=== PATIENT | male | born 1975 | race Hispanic/Latino ===

== ENCOUNTER 2017-02-04 09:43 | Inpatient (IN) | payer OTHER ==
[2017-02-04] MEDS ORDERED: Morphine 4 MG/ML VIAL IV ONE ×2 (10:15→14:37)
[2017-02-04] MEDS ORDERED: Dexamethasone 10 MG in Sodium Chloride 0.9% 50 ML IV ONE (10:15)
[2017-02-04] MEDS ORDERED: Clindamycin 600 MG in Sodium Chloride 0.9% 100 ML IVPB STA (10:16)
--- NOTE | 2017-02-04 10:18 | ED PDOC ---
HPI: CCC, URI, Sore Throat Time Seen by Provider: 02/04/17 09:51 Chief Complaint (Nursing): ENT Problem Chief Complaint (Provider): Sore thraot History Per: Patient Additional Complaint(s): 42 yo male, no PMH, presents to ED with complaint sof progressively worsning sore throat x 3 days now. pt reports pain was initially worse on the left side on Friday night, then went to the middle of his throat, and is now worse on the right. [ain radiates to bilateral ears. no fever or chills. Pt seen at [facility] by urgent care center and was referred to ED to [facility]. Pt tested positive for strep at urgent care center. No medications were administered. Past Medical History Reviewed: Nursing Documentation, Vital Signs Vital Signs: Last Vital Signs Temp 98.4 F 02/04/17 15:45 Pulse 84 02/04/17 15:45 Resp 18 02/04/17 15:45 BP 125/82 02/04/17 15:45 Pulse Ox 99 02/04/17 15:45 - Medical History PMH: No Chronic Diseases - Surgical History Surgical History: Appendectomy - Family History Family History: States: No Known Family Hx - Living Arrangements Living Arrangements: With Family - Social History Current smoker - smoking cessation education provided: No Ex-Smoker (has not smoked in the last 12 months): No Alcohol: Social Drugs: Denies - Home Medications Home Medications: Ambulatory Orders Medication Instructions Recorded Esomeprazole Magnesium [Nexium 20 mg PO DAILY 02/04/17 24Hr] - Allergies Allergies/Adverse Reactions: Allergies Allergy/AdvReac Type Severity Reaction Status Date / Time No Known Allergies Allergy Verified 02/04/17 10:00 Review of Systems ROS Statement: Except As Marked, All Systems Reviewed And Found Negative ENT: Positive for: Throat Pain Physical Exam - Reviewed Nursing Documentation Reviewed: Yes Vital Signs Reviewed: Yes - Physical Exam Appears: Positive for: Well, Non-toxic, No Acute Distress Head Exam: Positive for: ATRAUMATIC, NORMAL INSPECTION, NORMOCEPHALIC Skin: Positive for: Normal Color, Warm, DRY Eye Exam: Positive for: EOMI, Normal appearance, PERRL ENT: Positive for: TM Is/Are (WNL), Pharyngeal Erythema, Tonsillar Swelling, Other (No palatal asymmetry or uvula devation). Negative for: Nasal Congestion Neck: Positive for: Normal, Painless ROM Cardiovascular/Chest: Positive for: Regular Rate, Rhythm Respiratory: Positive for: CNT, Normal Breath Sounds Gastrointestinal/Abdominal: Positive for: Normal Exam, Bowel Sounds, Soft Back: Positive for: Normal Inspection Extremity: Positive for: Normal ROM Neurologic/Psych: Positive for: Alert, Oriented - Laboratory Results Result Diagrams: 02/04/17 10:45 02/04/17 10:45 - ECG O2 Sat by Pulse Oximetry: 99 Medical Decision Making Medical Decision Making: IV access established and treatment initiated with IV Clinda, Decadron and Morphine after diagnostics drawn. On re-eval< pt with nausea and 1 episode of vomiting. Reports pain continues to be severe. Pt medicated with Zofran and Toradol. CBC resulted with WBC 27.8, Strep (+) CT: Bilateral tonsillitis without evidence of abscess. Extension of this process to the epiglottis with betty epiglottitis. No retropharyngeal abscess identified. There is mild narrowing of the airway at the level of the epiglottis. Probable pooled secretions in the left piriform sinus. Cannot rule out abscess. These findings were discussed by telephone with MAI Recinos, at 1:20 p.m. on 02/04/2017. Case discussed with ED MD, Dr. Zuleta, who contacted ENT on-call Dr. Nielson. Dr. Nielson presented to evaluate Pt at bedside. see note. Armaments made for ICU admit. Disposition - Clinical Impression Clinical Impression: Epiglottitis - Patient ED Disposition Is Patient to be Admitted: Yes - Disposition Disposition Time: 16:39 Condition: STABLE - POA Present On Arrival: None
[2017-02-04 11:08] LABS: BASO # 0.1 K/uL (0.0-0.2); BASO % 0.4 % (0.0-2.0); EOS % 0.1 % (0.0-4.0); HEMOGLOBIN 17.1 g/dL (12.0-18.0); LYMPH # 0.3 K/uL (1.0-4.3); LYMPH % 1.2 % (20.0-40.0); MEAN CELL VOLUME 92.1 fl (80.0-94.0); MEAN CORPUSCULAR HEMOGLOBIN 31.8 pg (27.0-31.0); MEAN CORPUSCULAR HGB CONC 34.6 g/dL (33.0-37.0); MEAN PLATELET VOLUME 11.5 fl (7.2-11.7); MONO # 2.9 K/uL (0.0-0.8); MONO % 10.6 % (0.0-10.0); NEUT # 24.3 K/uL (1.8-7.0); NEUT % 87.7 % (50.0-75.0); PLATELET COUNT 122 K/uL (130-400); RBC 5.36 Mil/uL (4.40-5.90); RED CELL DISTRIBUTION WIDTH 12.2 % (11.5-14.5); WHITE BLOOD COUNT 27.8 K/uL (4.8-10.8)
[2017-02-04 11:16] LABS: ALB/GLOB RATIO 1.2 (1.0-2.1); ALBUMIN 4.5 g/dL (3.5-5.0); ALT/SGPT 82 U/L (21-72); AST/SGOT 44 U/L (17-59); BLOOD UREA NITROGEN 10 mg/dl (9-20); CALCIUM 9.5 mg/dL (8.4-10.2); GFR AFRICAN-AMERICAN > 60; GFR NON-AFRICAN AMERICAN > 60
[2017-02-04 11:56] LABS: BANDS 8 % (0-2); BASOPHIL 1 % (0-2); LYMPHOCYTE 1 % (20-50); MONOCYTE 6 % (0-10); NEUTROPHIL 83 % (42-75); REACTIVE LYMPHOCYTES 1 % (0-0); TOTAL CELLS COUNTED 100
[2017-02-04 11:57] LABS: PLATELET ESTIMATE SLIGHTLY DECREASED (NORMAL)
[2017-02-04 11:58] LABS: LARGE PLATELETS PRESENT
[2017-02-04] MEDS ORDERED: Sodium Chloride 0.9% 50 ML IV ONE (12:28)
[2017-02-04] MEDS ORDERED: Iohexol 300 100 ML IJ ONE (12:28)
--- NOTE | 2017-02-04 13:29 | CT ---
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 Coronal and sagittal reformats generated. Intravenous contrast dose: 95 mL Omnipaque 300 Radiation dose: DLP 409.53 mGy-cm This CT exam was performed using one or more of the following dose reduction techniques: Automated exposure control, adjustment of the mA and/or kV according to patient size, and/or use of iterative reconstruction technique. FINDINGS: NASOPHARYNX: Unremarkable. SUPRAHYOID NECK: Enlargement of both the right and left palatine tonsil with heterogeneous low attenuation likely reflecting phlegmonous change. No betty abscess identified. This process continues to the epiglottis, with enlargement and low-attenuation of the epiglottis, consistent with epiglottitis. There is some narrowing of the airway at the level of the epiglottis. Again, there is no evidence of betty abscess. There is low density seen along the left side of the pharynx at the level of the piriform sinuses, possibly pooled secretions. Cannot rule out abscess. This deforms the left lateral wall of the pharynx. INFRAHYOID NECK: Unremarkable larynx, hypopharynx, and supraglottic space. Vocal cords intact. MASS: None. GLANDS: Parotid and submandibular glands unremarkable. Normal size thyroid gland, without nodule. LYMPH NODES: Shotty level 2 lymph nodes noted bilaterally. CERVICAL SPINE: No fracture or focal lesion. VASCULAR STRUCTURES: Unremarkable. OTHER FINDINGS: None. IMPRESSION: Bilateral tonsillitis without evidence of abscess. Extension of this process to the epiglottis with betty epiglottitis. No retropharyngeal abscess identified. There is mild narrowing of the airway at the level of the epiglottis. Probable pooled secretions in the left piriform sinus. Cannot rule out abscess. These findings were discussed by telephone with MAI Recinos, at 1:20 p.m. on 02/04/2017.
[2017-02-04] MEDS ORDERED: Ampicillin/Sulbactam 3 GM in Sodium Chloride 0.9% 100 ML IVPB STA (13:41)
[2017-02-04 13:53] LABS: VENOUS BLOOD GAS BASE EXCESS 1.3 mmol/L (0.0-2.0); VENOUS BLOOD GAS PCO2 43 mmHg (40-60); VENOUS BLOOD GAS PO2 24 mm/Hg (30-55)
[2017-02-04] MEDS ORDERED: Pneumococcal 23-Valent Vaccine IM ONE (18:12)
[2017-02-04] MEDS ORDERED: Sodium Chloride 0.9% 1,000 ML IV SCH ×2 (18:15→22:09)
--- NOTE | 2017-02-04 18:16 | CP.CCUPN ---
<Tisha Chau - Last Filed: 02/04/17 18:41> CCU Subjective - Physician Review Subjective (Free Text): 02/04/17 18:12 - 42 YO M w/ no significant PMH presented to the ED w/ sore throat x 3 days. It has progressively been getting worse. [place] and had an exposure to a sick child with an ear infection. Throat tenderness started on the left side and slowly progressed to the right side. He was not able to eat anything since 12 pm yesterday on 02/03/17, and he was unable to eat anything today after 5 pm. Today he states he was starting to have difficulty in breathing - Pt tested positive for strep at a [facility] urgent care and was referred here. No medications were given at the urgent care. ER course: - IV access was placed. - IV clindamycin, Decadron and Morphine - CBC: WBC 27.8, Strep: + CT:Bilateral tonsillitis without evidence of abscess. Extension of this process to the epiglottis with betty epiglottitis. No retropharyngeal abscess identified. There is mild narrowing of the airway at the level of the epiglottis. Probable pooled secretions in the left piriform sinus. Cannot rule out abscess. - ENT evaluated patient at bedside not a candidate for intubation Critical Care Time Spent (in minutes): 30 CCU Objective - Vital Signs / Intake & Output Vital Signs (Last 4 hours): Vital Signs Temp Pulse Resp BP Pulse Ox 02/04/17 17:41 17 02/04/17 16:39 99 02/04/17 15:45 98.4 F 84 18 125/82 99 - Physical Exam Head: Positive for: Atraumatic, Normocephalic Pupils: Positive for: PERRL Extroacular Muscles: Positive for: EOMI Conjunctiva: Positive for: Normal Pharnyx: Positive for: Other (Pharngeal erythema, Tonsillar swelling) Nose (Internal): Positive for: Normal Inspection Neck: Positive for: Normal Range of Motion Cardiovascular: Positive for: Regular Rate and Rhythm, Normal S1, S2. Negative for: Murmurs Abdomen: Positive for: Normal Bowel Sounds. Negative for: Tenderness, Distention Lower Extremity: Positive for: Normal Inspection. Negative for: Edema Neurological: Positive for: CN II-XII Intact, Motor Func Grossly Intact, Gait Normal Skin: Positive for: Warm, Dry Psychiatric: Positive for: Alert, Oriented x 3, Normal Concentration - Medications Active Medications: Active Medications Generic Name Dose Route Start Last Admin Trade Name Freq PRN Reason Stop Dose Admin Dexamethasone 10 mg/ Dextrose 51 mls @ 100 mls/hr 02/05/17 01:00 IV Q8 ROBIN Sodium Chloride 1,000 mls @ 100 mls/hr 02/04/17 18:15 Sodium Chloride 0.9% IV 02/05/17 18:10 .Q10H ROBIN Morphine Sulfate 1 mg 02/04/17 18:09 Morphine IVP Q4 PRN Pain, moderate (4-7) Assessment/Plan - Assessment and Plan (Free Text) Assessment: 1) Epiglottis - Strict NPO - Droplet precaution - Keep head of bed elevated - Heliox administration - IVF - Afebrile - CT: Bilateral tonsillitis without evidence of abscess. Extension of this process to the epiglottis with betty epiglottitis. No retropharyngeal abscess identified. There is mild narrowing of the airway at the level of the epiglottis. Probable pooled secretions in the left piriform sinus. Cannot rule out abscess. - ENT consult appreciated -Pt doing much better after the decadron in ER. Does not appear in respiratory distress 2) Strep throat : - Afebrile - Group A Beta Strep Ag +ve - WBC: 27.8 w/ a left shift - Band: 8 - Unasyn Q6 - F/U w/ throat culture, blood culture, MRSA screen 3) DVT prophylaxis - SCD <PradeepfOmega M - Last Filed: 02/04/17 19:08> CCU Objective - Vital Signs / Intake & Output Vital Signs (Last 4 hours): Vital Signs Temp Pulse Resp BP Pulse Ox 02/04/17 17:41 17 02/04/17 16:39 99 02/04/17 15:45 98.4 F 84 18 125/82 99 - Medications Active Medications: Active Medications Generic Name Dose Route Start Last Admin Trade Name Freq PRN Reason Stop Dose Admin Sodium Chloride 1,000 mls @ 100 mls/hr 02/04/17 18:15 Sodium Chloride 0.9% IV 02/05/17 18:10 .Q10H ROBIN Ampicillin Sodium/Sulbactam 100 mls @ 100 mls/hr 02/04/17 22:00 Sodium 3 gm/ Sodium Chloride IVPB Q6 ROBIN Dexamethasone 10 mg/ Sodium 51 mls @ 102 mls/hr 02/04/17 19:00 Chloride IVPB Q8 ROBIN Morphine Sulfate 1 mg 02/04/17 18:09 Morphine IVP Q4 PRN Pain, moderate (4-7) Pneumococcal Polyvalent Vaccine 0.5 ml 02/04/17 18:12 Pneumovax 23 Vaccine IM 02/04/17 18:13 .ONCE ONE Critical Care Progress Note - Nutrition Nutrition: Nutrition Category Date Time Status NPO Diet [DIET] Diets 02/04/17 Dinner Active Attending/Attestation - Attestation I have personally seen and examined this patient.: Yes I have fully participated in the care of the patient.: Yes I have reviewed all pertinent clinical information: Yes Notes (Text): 02/04/17 19:07 The patient was Seen/interviewed and examined by me at the bedside during ICU round, Medical records reviewed and Management issues were discussed and formulated with the house staff. I have reviewed all the relevant clinical, laboratory, hemodynamic, radiographic data and medications I concur with resident's assessment and plan of care, as outlined in Dr Chau note
--- NOTE | 2017-02-04 18:41 | CP.PCM.PN ---
Subjective - Date & Time of Evaluation Date of Evaluation: 02/04/17 Time of Evaluation: 15:00 - Subjective Subjective: See below Objective - Vital Signs/Intake and Output Vital Signs (last 24 hours): Temp Pulse Resp BP Pulse Ox 98.4 F 84 17 125/82 99 02/04/17 15:45 02/04/17 15:45 02/04/17 17:41 02/04/17 15:45 02/04/17 16:39 - Medications Medications: Current Medications Sodium Chloride (Sodium Chloride 0.9%) 1,000 mls @ 100 mls/hr IV .Q10H ROBIN Stop: 02/05/17 18:10 Ampicillin Sodium/Sulbactam (Sodium 3 gm/ Sodium Chloride) 100 mls @ 100 mls/ hr IVPB Q6 ROBIN Dexamethasone 10 mg/ Sodium (Chloride) 51 mls @ 102 mls/hr IVPB Q8 ROBIN Morphine Sulfate (Morphine) 1 mg IVP Q4 PRN PRN Reason: Pain, moderate (4-7) Pneumococcal Polyvalent Vaccine (Pneumovax 23 Vaccine) 0.5 ml IM .ONCE ONE Stop: 02/04/17 18:13 Assessment and Plan - Assessment and Plan (Free Text) Assessment: History of Present Illness 42 y/o male with 3 days of sore throat significantly worse since yesterday. He has been unable to eat or drink since yesterday due to the pain. He also has voice changes. Since coming in to the ER and receiving Decadron a few hours ago , he feels significantly better. He currently denies any trouble breathing. His throat feels much more open now. Past Medical Hx denies NKDA Social and Family Hx non-contributory Home Medications Nexium Exam awake, alert, comfortable. Breathing comfortably No stridor or noisy breathing. Patient is quite comfortable and is talking on the phone. Voice is a little hoarse. Neck soft, no swelling; tender central neck without mass or induration; trachea midline oc/op clear; no palatal swelling. nose clear face symmetric and non-tender Procedure Note: fiberoptic laryngoscopy 11074. Indication: voice changes, laryngeal edema Nose anesthetized with Lidocaine 4% spray. Flexible fiberoptic scope then passed into the nose and passed down to the hypopharynx/larynx. There is moderate swelling and redness of the entire epiglottis with left>right aryepigloittic and arytenoid edema. This edema is non-obstructing, and I am easily able to see both true vocal cords when he speaks. The airway is patent. Scope removed. No complications. Patient tolerated procedure well. CT reviewed; no abscess; thickening of the epiglottis c/w acute epiglottitis Impression Acute Epiglottitis Recommend ICU admission for airway monitoring Decadron 10 q8h IV Unasyn 3g IV Q6h HOB elevation NPO My findings were d/w patient in detail. I explained that he has swelling of the epiglottis due to infection. He seems to be more comfortable with the Decadron he has received. I do not see an indication for tracheotomy at this point as he has a patent airway and is feeling better (and he is quite comfortable). I did, however, explain to him that should his swelling worsen, then he may need airway management with a tracheotomy. He understands. My findings and plan were d/w ER and ICU attendings, as well as the ICU nurse who will receive this patient. I will follow closely; should he develop any changes to his status or develop any new or worsening airway/throat complaints, please notify me immediately and I will re-assess his airway.
[2017-02-04] MEDS ORDERED: Dexamethasone 10 MG in Sodium Chloride 0.9% 50 ML IVPB SCH (19:00)
[2017-02-04] MEDS: Morphine 4 MG/ML VIAL IVP PRN (20:00)
--- NOTE | 2017-02-04 20:53 | CP.PCM.HP ---
History of Present Illness - History of Present Illness History of Present Illness: 42 yo admitted to the ICU with acute epiglotitis Present on Admission - Present on Admission Any Indicators Present on Admission: No Past Patient History - Past Medical History & Family History Past Medical History?: Yes - Past Social History Smoking Status: Current Some Days Smoker - MUSCULOSKELETAL/RHEUMATOLOGICAL Hx Falls: No - PSYCHIATRIC Hx Substance Use: No (recreational cocaine 10 yrs ago) - SURGICAL HISTORY Hx Appendectomy: Yes - ANESTHESIA Hx Anesthesia: Yes Hx Anesthesia Reactions: No Meds Allergies/Adverse Reactions: Allergies Allergy/AdvReac Type Severity Reaction Status Date / Time No Known Allergies Allergy Verified 02/04/17 10:00 Physical Exam - Respiratory Exam Respiratory Exam: NORMAL BREATHING PATTERN - Cardiovascular Exam Cardiovascular Exam: REGULAR RHYTHM - GI/Abdominal Exam GI & Abdominal Exam: Normal Bowel Sounds Results - Vital Signs Recent Vital Signs: Last Vital Signs Temp 99.5 F 02/04/17 20:00 Pulse 93 H 02/04/17 20:00 Resp 24 02/04/17 20:00 BP 119/64 02/04/17 20:00 Pulse Ox 96 02/04/17 20:00 - Labs Result Diagrams: 02/04/17 10:45 02/04/17 10:45 Assessment & Plan - Assessment and Plan (Free Text) Assessment: Acute Epiglottitis Admit to ICU IVF O2 ABX Steroids ENT - Date & Time Date: 02/04/17 Time: 22:22
[2017-02-04] MEDS: Ampicillin/Sulbactam 3 GM in Sodium Chloride 0.9% 100 ML IVPB SCH (21:09)
[2017-02-05] MEDS ORDERED: Dexamethasone 10 MG in Sodium Chloride 0.9% 50 ML IV SCH (01:00)
[2017-02-05] MEDS ORDERED: Dexamethasone 10 MG in Dextrose 5% In Water 50 ML IV SCH (01:00)
[2017-02-05] MEDS: Sodium Chloride 0.9% 1,000 ML IV SCH ×4 (01:41→17:00)
[2017-02-05] MEDS: Dexamethasone 10 MG in Sodium Chloride 0.9% 50 ML IVPB SCH ×3 (03:00→19:43)
[2017-02-05] MEDS: Ampicillin/Sulbactam 3 GM in Sodium Chloride 0.9% 100 ML IVPB SCH ×4 (03:30→21:28)
[2017-02-05 05:33] LABS: BASO % 0.1 % (0.0-2.0); HEMOGLOBIN 15.6 g/dL (12.0-18.0); LYMPH # 0.6 K/uL (1.0-4.3); LYMPH % 1.9 % (20.0-40.0); MEAN CORPUSCULAR HEMOGLOBIN 32.4 pg (27.0-31.0); MEAN CORPUSCULAR HGB CONC 34.8 g/dL (33.0-37.0); MEAN PLATELET VOLUME 12.2 fl (7.2-11.7); MONO # 1.3 K/uL (0.0-0.8); MONO % 4.5 % (0.0-10.0); NEUT # 27.8 K/uL (1.8-7.0); NEUT % 93.5 % (50.0-75.0); NRBC % 0.2 % (0.0-0.0); PLATELET COUNT 115 K/uL (130-400); RBC 4.82 Mil/uL (4.40-5.90); RED CELL DISTRIBUTION WIDTH 12.2 % (11.5-14.5); WHITE BLOOD COUNT 29.7 K/uL (4.8-10.8)
[2017-02-05 05:37] LABS: ALB/GLOB RATIO 1.2 (1.0-2.1); ALBUMIN 3.8 g/dL (3.5-5.0); ALT/SGPT 60 U/L (21-72); AST/SGOT 34 U/L (17-59); BLOOD UREA NITROGEN 17 mg/dl (9-20); CALCIUM 9.2 mg/dL (8.4-10.2); GFR AFRICAN-AMERICAN > 60; GFR NON-AFRICAN AMERICAN > 60
[2017-02-05] MEDS: Morphine 4 MG/ML VIAL IVP PRN (05:46)
[2017-02-05 07:08] LABS: LYMPHOCYTE 2 % (20-50); MONOCYTE 6 % (0-10); NEUTROPHIL 92 % (42-75); TOTAL CELLS COUNTED 100
[2017-02-05 07:11] LABS: PLATELET ESTIMATE SLIGHTLY DECREASED (NORMAL)
[2017-02-05 07:13] LABS: ANISOCYTOSIS SLIGHT; LARGE PLATELETS PRESENT
--- NOTE | 2017-02-05 09:21 | CP.PCM.PN ---
Subjective - Date & Time of Evaluation Date of Evaluation: 02/05/17 Time of Evaluation: 09:14 - Subjective Subjective: see below Objective - Vital Signs/Intake and Output Vital Signs (last 24 hours): Temp Pulse Resp BP Pulse Ox 98.4 F 93 H 20 131/87 96 02/05/17 08:00 02/05/17 08:00 02/05/17 08:00 02/05/17 08:00 02/05/17 08:00 Intake and Output: 02/05/17 02/05/17 06:59 18:59 Intake Total 1650 100 Output Total 575 Balance 1075 100 - Medications Medications: Current Medications Ampicillin Sodium/Sulbactam (Sodium 3 gm/ Sodium Chloride) 100 mls @ 100 mls/ hr IVPB Q6 ROBIN Last Admin: 02/05/17 09:03 Dose: 100 mls/hr Dexamethasone 10 mg/ Sodium (Chloride) 51 mls @ 102 mls/hr IVPB Q8@0400,1200, 2000 [facility] Last Admin: 02/05/17 03:00 Dose: 102 mls/hr Sodium Chloride (Sodium Chloride 0.9%) 1,000 mls @ 150 mls/hr IV .Q6H40M [facility] Stop: 02/05/17 23:38 Last Admin: 02/05/17 07:30 Dose: 150 mls/hr Morphine Sulfate (Morphine) 1 mg IVP Q4 PRN PRN Reason: Pain, moderate (4-7) Last Admin: 02/05/17 05:46 Dose: 1 mg - Labs Labs: 02/05/17 04:35 02/05/17 04:35 Assessment and Plan - Assessment and Plan (Free Text) Assessment: feels better. i spoke with patient over telephone twice last night to check on his progress, and he felt fine. no throat tightness or trouble breathing. pain is minimal, only present when he swallows. he is able to swallow his saliva, whereas yesterday he had trouble. no fevers Exam awake, alert, comfortable no stridor; voice strong and a little hoarse neck soft, no swelling, minimal tenderness (much improved c/w yesterday) oc/op clear Fiberoptic Laryngosopy: improvement to epiglottis and AE fold/arytenoid edema. I am able to see into the left pyriform sinus today when he phonates - it is clear. The epiglottis is still red and moderately swollen, but better. I am easily able to see all of b/l TVC at rest. Airway patent. Impression Acute epiglottitis - improving Recommend Continue ICU monitoring Continue Decadron 10 IV Q8h Continue IV Unasyn NPO will continue to follow closely
--- NOTE | 2017-02-05 12:25 | CP.PCM.CON ---
History of Present Illness - History of Present Illness History of Present Illness: 42 YO M presented to the ED w/ sore throat x 3 days. It has progressively been getting worse. [place] and had an exposure to a sick child with an ear infection. Throat tenderness started on the left side and slowly progressed to the right side. He was not able to eat anything and later developed dyspnea - Pt tested positive for strep at a [facility] and was referred here. CT:Bilateral tonsillitis without evidence of abscess. Extension of this process to the epiglottis with betty epiglottitis. No retropharyngeal abscess identified. There is mild narrowing of the airway at the level of the epiglottis. Probable pooled secretions in the left piriform sinus. Cannot rule out abscess. switched to IV Unasyn ID consult requested FH- CAD HTN Review of Systems - Review of Systems All systems: reviewed and no additional remarkable complaints except - Constitutional Constitutional: As Per HPI. absent: Chills, Fever - EENT Eyes: absent: As Per HPI, Blind Spots, Blurred Vision, Change in Vision, Decreased Night Vision, Diplopia, Discharge, Dry Eye, Exophthalmos, Floaters, Irritation, Itchy Eyes, Loss of Peripheral Vision, Pain, Photophobia, Requires Corrective Lenses, Sees Flashes, Spots in Vision, Tunnel Vision, Other Visual Disturbances, Loss of Vision, Other Ears: absent: As Per HPI, Decreased Hearing, Ear Discharge, Ear Pain, Tinnitus, Abnormal Hearing, Disequilibrium, Dizziness, Other Nose/Mouth/Throat: As Per HPI - Cardiovascular Cardiovascular: absent: As Per HPI, Acrocyanosis, Chest Pain, Chest Pain at Rest , Chest Pain with Activity, Claudication, Diaphoresis, Dyspnea, Dyspnea on Exertion, Edema, Irregular Heart Rhythm, Pain Radiating to Arm/Neck/Jaw, Leg Edema, Leg Ulcers, Lightheadedness, Orthopnea, Palpitations, Paroxysmal Nocturnal Dyspnea, Pedal Edema, Radiating Pain, Rapid Heart Rate, Slow Heart Rate, Syncope, Other - Respiratory Respiratory: As Per HPI - Gastrointestinal Gastrointestinal: absent: As Per HPI, Abdominal Pain, Belching, Bloating, Change in Bowel Habits, Change in Stool Character, Coffee Ground Emesis, Constipation, Cramping, Diarrhea, Dyspepsia, Dysphagia, Early Satiety, Excessive Flatus, Fecal Incontinence, Heartburn, Hematemesis, Hematochezia, Loose Stools, Melena, Nausea, Odynophagia, Temesmus, Vomiting, Other - Genitourinary Genitourinary: absent: As Per HPI, Change in Urinary Stream, Difficulty Urinating, Dysuria, Flank Pain, Hematuria, Pyuria, Nocturia, Urinary Incontinence, Urinary Frequency, Urinary Hesitance, Urinary Urgency, Voiding Freq/Small Amts, Freq UTI, Hx Renal/Bladder Calculi, Hx /Renal Surgery, Bladder Distension, Other - Musculoskeletal Musculoskeletal: absent: As Per HPI, Abnormal Gait, Arthralgias, Atrophy, Back Pain, Deformity, Joint Swelling, Limited Range of Motion, Loss of Height, Muscle Cramps, Muscle Weakness, Myalgias, Neck Pain, Numbness, Radiating Pain into Limb, Stiffness, Tingling, Other - Integumentary Integumentary: absent: As Per HPI, Acne, Alopecia, Bleeding Lesions, Change in Hair, Change in Nails, Change in Pigmentation, Changing Lesions, Dry Skin, Erythema, Furuncle, Hirsutism, Lesions, New Lesions, Non-Healing Lesions, Photosensitivity, Pruritus, Rash, Skin Pain, Skin Ulcer, Sores, Striae, Swelling , Unusual Bruising, Wounds, Jaundice, Other - Neurological Neurological: absent: As Per HPI, Abnormal Gait, Abnormal Hearing, Abnormal Movements, Abnormal Speech, Behavioral Changes, Burning Sensations, Confusion, Convulsions, Disequilibrium, Dizziness, Numbness, Focal Weakness, Frequent Falls , Headaches, Lack of Coordination, Loss of Vision, Memory Loss, Paresthesias, Radicular Pain, Restless Legs, Sensory Deficit, Syncope, Tingling, Tremor, Vertigo, Weakness, Other Visual Disturbances, Other - Psychiatric Psychiatric: absent: As Per HPI, Abnormal Sleep Pattern, Anhedonia, Anxiety, Auditory Hallucinations, Behavioral Changes, Change in Appetite, Change in Libido, Confusion, Depression, Difficulty Concentrating, Hallucinations, Homicidal Ideation, Hopelessness, Irritability, Memory Loss, Mood Swings, Panic Attacks, Paranoia, Suicidal Ideation, Visual Hallucinations, Tactile Hallucinations, Other - Endocrine Endocrine: absent: As Per HPI, Change in Body Appearance, Change in Libido, Cold Intolorance, Deepening of Voice, Excessive Sweating, Fatigue, Flushing, Heat Intolorance, Increase in Ring/Shoe/Hat Size, Palpitations, Polydipsia, Polyphagia, Polyuria, Other - Hematologic/Lymphatic Hematologic: absent: As Per HPI, Easy Bleeding, Easy Bruising, Lymphadenopathy, Other Past Patient History - Past Medical History & Family History Past Medical History?: Yes - Past Social History Smoking Status: Current Some Days Smoker - MUSCULOSKELETAL/RHEUMATOLOGICAL Hx Falls: No - PSYCHIATRIC Hx Substance Use: No (recreational cocaine 10 yrs ago) - SURGICAL HISTORY Hx Appendectomy: Yes - ANESTHESIA Hx Anesthesia: Yes Hx Anesthesia Reactions: No Meds Allergies/Adverse Reactions: Allergies Allergy/AdvReac Type Severity Reaction Status Date / Time No Known Allergies Allergy Verified 02/04/17 10:00 - Medications Medications: Current Medications Ampicillin Sodium/Sulbactam (Sodium 3 gm/ Sodium Chloride) 100 mls @ 100 mls/ hr IVPB Q6 [facility] Last Admin: 02/05/17 09:03 Dose: 100 mls/hr Dexamethasone 10 mg/ Sodium (Chloride) 51 mls @ 102 mls/hr IVPB Q8@0400,1200, 2000 [facility] Last Admin: 02/05/17 12:13 Dose: 102 mls/hr Sodium Chloride (Sodium Chloride 0.9%) 1,000 mls @ 150 mls/hr IV .Q6H40M [facility] Stop: 02/05/17 23:38 Last Admin: 02/05/17 07:30 Dose: 150 mls/hr Morphine Sulfate (Morphine) 1 mg IVP Q4 PRN PRN Reason: Pain, moderate (4-7) Last Admin: 02/05/17 05:46 Dose: 1 mg Physical Exam - Constitutional Appears: Non-toxic, Chronically Ill - Head Exam Head Exam: ATRAUMATIC, NORMAL INSPECTION, NORMOCEPHALIC - Eye Exam Eye Exam: EOMI, PERRL. absent: Scleral icterus - ENT Exam ENT Exam: Mucous Membranes Dry, Normal External Ear Exam, TM's Normal Bilaterally. absent: Normal Oropharynx Additional comments: + pharyngotonsillitis epiglottitis - Neck Exam Neck exam: Negative for: Lymphadenopathy, Thyromegaly - Respiratory Exam Respiratory Exam: Decreased Breath Sounds, Clear to Auscultation Bilateral - Cardiovascular Exam Cardiovascular Exam: REGULAR RHYTHM, +S1, +S2 - GI/Abdominal Exam GI & Abdominal Exam: Diminished Bowel Sounds, Soft. absent: Tenderness - Rectal Exam Rectal Exam: Deferred - Extremities Exam Extremities exam: Positive for: pedal pulses present. Negative for: calf tenderness, pedal edema, tenderness - Back Exam Back exam: absent: CVA tenderness (L), CVA tenderness (R), paraspinal tenderness - Neurological Exam Neurological exam: Alert, CN II-XII Intact, Oriented x3, Reflexes Normal - Psychiatric Exam Psychiatric exam: Normal Mood - Skin Skin Exam: Dry, Intact Results - Vital Signs Recent Vital Signs: Last Vital Signs Temp 98.4 F 02/05/17 08:00 Pulse 82 02/05/17 12:00 Resp 18 02/05/17 12:00 BP 111/65 02/05/17 12:00 Pulse Ox 97 02/05/17 12:00 - Labs Result Diagrams: 02/05/17 04:35 02/05/17 04:35 Labs: Laboratory Results - last 24 hr 02/05/17 02/05/17 04:35 04:35 WBC 29.7 H RBC 4.82 Hgb 15.6 Hct 44.8 MCV 93.0 MCH 32.4 H MCHC 34.8 RDW 12.2 Plt Count 115 L MPV 12.2 H Neut % (Auto) 93.5 H Lymph % (Auto) 1.9 L [place] % (Auto) 4.5 Eos % (Auto) 0.0 Baso % (Auto) 0.1 Neut # 27.8 H Lymph # 0.6 L Wheeler # 1.3 H Eos # 0.0 Baso # 0.0 Neutrophils % (Manual) 92 H Lymphocytes % (Manual) 2 L Monocytes % (Manual) 6 Platelet Estimate Slightly decreased L Large Platelets Present Anisocytosis (manual) Slight Sodium 143 Potassium 4.5 Chloride 109 H Carbon Dioxide 25 Anion Gap 14 BUN 17 Creatinine 0.9 Est GFR ( Amer) > 60 Est GFR (Non-Af Amer) > 60 Random Glucose 132 H Calcium 9.2 Total Bilirubin 0.7 AST 34 ALT 60 Alkaline Phosphatase 94 Total Protein 6.9 Albumin 3.8 Globulin 3.1 Albumin/Globulin Ratio 1.2 Assessment & Plan (1) Epiglottitis Status: Acute (2) Tonsillitis Status: Acute - Assessment and Plan (Free Text) Assessment: cont iv unasyn then augmentin for 10 days await cultures
--- NOTE | 2017-02-05 13:08 | CP.CCUPN ---
<Tisha Chau - Last Filed: 02/05/17 13:57> CCU Subjective - Physician Review Subjective (Free Text): 02/04/17 18:12 Patient was seen at bedside. He states he is feeling much better then yesterday and is not having any trouble breathing. He still does have discomfort during swallowing and uses suction to clear his mouth. He is otherwise doing, denies any fever or chills overnight. Critical Care Time Spent (in minutes): 30 CCU Objective - Vital Signs / Intake & Output Vital Signs (Last 4 hours): Vital Signs Pulse Resp BP Pulse Ox 02/05/17 12:00 82 18 111/65 97 02/05/17 10:00 59 L 16 153/74 H 98 Intake and Output (Last 8hrs): Intake & Output 02/04/17 02/05/17 02/05/17 22:59 06:59 14:59 Intake Total 350 1300 150 Output Total 300 275 200 Balance 50 1025 -50 Intake: IV 150 1150 Intake, Piggyback 200 150 150 Output: Urine 300 275 200 Urine, Voided 300 275 200 - Physical Exam Head: Positive for: Atraumatic, Normocephalic Pupils: Positive for: PERRL Extroacular Muscles: Positive for: EOMI Conjunctiva: Positive for: Normal Pharnyx: Positive for: Other (Pharngeal erythema, Tonsillar swelling) Nose (Internal): Positive for: Normal Inspection Neck: Positive for: Normal Range of Motion Cardiovascular: Positive for: Regular Rate and Rhythm, Normal S1, S2. Negative for: Murmurs Abdomen: Positive for: Normal Bowel Sounds. Negative for: Tenderness, Distention Lower Extremity: Positive for: Normal Inspection. Negative for: Edema Neurological: Positive for: CN II-XII Intact, Motor Func Grossly Intact, Gait Normal Skin: Positive for: Warm, Dry Psychiatric: Positive for: Alert, Oriented x 3, Normal Concentration - Medications Active Medications: Active Medications Generic Name Dose Route Start Last Admin Trade Name Freq PRN Reason Stop Dose Admin Ampicillin Sodium/Sulbactam 100 mls @ 100 mls/hr 02/04/17 22:00 02/05/17 09: 03 Sodium 3 gm/ Sodium Chloride IVPB 100 mls/hr Q6 [facility] Administration Dexamethasone 10 mg/ Sodium 51 mls @ 102 mls/hr 02/05/17 04:00 02/05/17 12:13 Chloride IVPB 102 mls/hr Q8@0400,1200,2000 [facility] Administration Sodium Chloride 1,000 mls @ 150 mls/hr 02/05/17 07:00 02/05/17 07:30 Sodium Chloride 0.9% IV 02/05/17 23:38 150 mls/hr .Q6H40M [facility] Administration Morphine Sulfate 1 mg 02/04/17 20:00 02/05/17 05:46 Morphine IVP 1 mg Q4 PRN Administration Pain, moderate (4-7) - Patient Studies Lab Studies: Lab Studies 02/05/17 02/05/17 Range/Units 04:35 04:35 WBC 29.7 H (4.8-10.8) K/uL RBC 4.82 (4.40-5.90) Mil/uL Hgb 15.6 (12.0-18.0) g/dL Hct 44.8 (35.0-51.0) % MCV 93.0 (80.0-94.0) fl MCH 32.4 H (27.0-31.0) pg MCHC 34.8 (33.0-37.0) g/dL RDW 12.2 (11.5-14.5) % Plt Count 115 L (130-400) K/uL MPV 12.2 H (7.2-11.7) fl Neut % (Auto) 93.5 H (50.0-75.0) % Lymph % (Auto) 1.9 L (20.0-40.0) % [place] % (Auto) 4.5 (0.0-10.0) % Eos % (Auto) 0.0 (0.0-4.0) % Baso % (Auto) 0.1 (0.0-2.0) % Neut # 27.8 H (1.8-7.0) K/uL Lymph # 0.6 L (1.0-4.3) K/uL [place] # 1.3 H (0.0-0.8) K/uL Eos # 0.0 (0.0-0.7) K/uL Baso # 0.0 (0.0-0.2) K/uL Neutrophils % (Manual) 92 H (42-75) % Lymphocytes % (Manual) 2 L (20-50) % Monocytes % (Manual) 6 (0-10) % Platelet Estimate Slightly decreased L (NORMAL) Large Platelets Present Anisocytosis (manual) Slight Sodium 143 (132-148) mmol/l Potassium 4.5 (3.6-5.0) MMOL/L Chloride 109 H (98-107) mmol/L Carbon Dioxide 25 (22-30) mmol/L Anion Gap 14 (10-20) BUN 17 (9-20) mg/dl Creatinine 0.9 (0.8-1.5) mg/dL Est GFR ( Amer) > 60 Est GFR (Non-Af Amer) > 60 Random Glucose 132 H (75-110) mg/dL Calcium 9.2 (8.4-10.2) mg/dL Total Bilirubin 0.7 (0.2-1.3) mg/dl AST 34 (17-59) U/L ALT 60 (21-72) U/L Alkaline Phosphatase 94 (38-126) U/L Total Protein 6.9 (6.3-8.2) G/DL Albumin 3.8 (3.5-5.0) g/dL Globulin 3.1 (2.2-3.9) gm/dL Albumin/Globulin Ratio 1.2 (1.0-2.1) Laboratory Results - last 24 hr 02/05/17 02/05/17 04:35 04:35 WBC 29.7 H RBC 4.82 Hgb 15.6 Hct 44.8 MCV 93.0 MCH 32.4 H MCHC 34.8 RDW 12.2 Plt Count 115 L MPV 12.2 H Neut % (Auto) 93.5 H Lymph % (Auto) 1.9 L [place] % (Auto) 4.5 Eos % (Auto) 0.0 Baso % (Auto) 0.1 Neut # 27.8 H Lymph # 0.6 L [place] # 1.3 H Eos # 0.0 Baso # 0.0 Neutrophils % (Manual) 92 H Lymphocytes % (Manual) 2 L Monocytes % (Manual) 6 Platelet Estimate Slightly decreased L Large Platelets Present Anisocytosis (manual) Slight Sodium 143 Potassium 4.5 Chloride 109 H Carbon Dioxide 25 Anion Gap 14 BUN 17 Creatinine 0.9 Est GFR ( Amer) > 60 Est GFR (Non-Af Amer) > 60 Random Glucose 132 H Calcium 9.2 Total Bilirubin 0.7 AST 34 ALT 60 Alkaline Phosphatase 94 Total Protein 6.9 Albumin 3.8 Globulin 3.1 Albumin/Globulin Ratio 1.2 Review of Systems - Review of Systems All systems: reviewed and no additional remarkable complaints except Critical Care Progress Note - Nutrition Nutrition: Nutrition Category Date Time Status NPO Diet [DIET] Diets 02/04/17 Dinner Active Assessment/Plan - Assessment and Plan (Free Text) Assessment: 1) Epiglottis - Strict NPO - Droplet precaution - Keep head of bed elevated - Heliox administration - IVF - Afebrile - As Per ENT's note, the larngoscopy showed some improvement to the eppiglotis and AE fold/ arytenoid edema. Epiglotis is still red and moderatly swollen but better. - CT: Bilateral tonsillitis without evidence of abscess. Extension of this process to the epiglottis with betty epiglottitis. No retropharyngeal abscess identified. There is mild narrowing of the airway at the level of the epiglottis. Probable pooled secretions in the left piriform sinus. Cannot rule out abscess. - ENT consult appreciated -Pt doing much better after the decadron in ER. Does not appear in respiratory distress 2) Strep throat : - Afebrile - Group A Beta Strep Ag +ve - WBC: 29.7 w/ a left shift - Band: 8 - Unasyn Q6 - F/U w/ throat culture, blood culture, MRSA screen 3) DVT prophylaxis - SCD <FanVijay Cyndi - Last Filed: 02/05/17 18:01> Critical Care Progress Note - Nutrition Nutrition: Nutrition Category Date Time Status NPO Diet [DIET] Diets 02/04/17 Dinner Active Assessment/Plan - Assessment and Plan (Free Text) Plan: Attestation: Patient seen and examined at the bedside with Resident Dr. Susana Chau; and I agree with his outline of plans and management as documented and discussed on AM rounds reflecting my review of all applicable clinical data, and participation in the care of the patient throughout the day in ICU; today, February 05, 2017.
[2017-02-05] MEDS ORDERED: Sodium Chloride 0.9% 1,000 ML IV SCH (17:30)
--- NOTE | 2017-02-05 17:47 | CP.PCM.PN ---
Subjective - Date & Time of Evaluation Date of Evaluation: 02/05/17 Time of Evaluation: 17:45 - Subjective Subjective: see below Objective - Vital Signs/Intake and Output Vital Signs (last 24 hours): Temp Pulse Resp BP Pulse Ox 98.1 F 75 15 141/79 97 02/05/17 16:43 02/05/17 16:43 02/05/17 16:43 02/05/17 16:43 02/05/17 16:43 Intake and Output: 02/05/17 02/05/17 06:59 18:59 Intake Total 1650 2050 Output Total 575 400 Balance 1075 1650 - Medications Medications: Current Medications Ampicillin Sodium/Sulbactam (Sodium 3 gm/ Sodium Chloride) 100 mls @ 100 mls/ hr IVPB Q6 [facility] Last Admin: 02/05/17 16:59 Dose: 100 mls/hr Dexamethasone 10 mg/ Sodium (Chloride) 51 mls @ 102 mls/hr IVPB Q8@0400,1200, 2000 [facility] Last Admin: 02/05/17 12:13 Dose: 102 mls/hr Sodium Chloride (Sodium Chloride 0.9%) 1,000 mls @ 150 mls/hr IV .Q6H40M [facility] Stop: 02/05/17 23:38 Last Admin: 02/05/17 17:00 Dose: 150 mls/hr Sodium Chloride (Sodium Chloride 0.9%) 1,000 mls @ 1,000 mls/hr IV .Q1H [facility] Stop: 02/05/17 18:29 Morphine Sulfate (Morphine) 1 mg IVP Q4 PRN PRN Reason: Pain, moderate (4-7) Last Admin: 02/05/17 05:46 Dose: 1 mg - Labs Labs: 02/05/17 04:35 02/05/17 04:35 Assessment and Plan - Assessment and Plan (Free Text) Assessment: i stopped by to check on this patient he feels well. pain is improved. he wants to eat. no SOB. exam unchanged fiberoptic laryngoscopy shows some improvement when c/w this morning he will try some thickened liquids in a little bit with nursing present; any coughing and he knows to stop continue abx and steroids will continue to follow closely
[2017-02-05] MEDS ORDERED: Pantoprazole 40 MG in Sodium Chloride 0.9% 100 ML IVPB SCH (18:00)
--- NOTE | 2017-02-05 19:12 | CP.PCM.PN ---
Subjective - Date & Time of Evaluation Date of Evaluation: 02/05/17 Time of Evaluation: 22:22 - Subjective Subjective: Above noted Objective - Vital Signs/Intake and Output Vital Signs (last 24 hours): Temp Pulse Resp BP Pulse Ox 98.1 F 91 H 18 141/83 96 02/05/17 16:43 02/05/17 18:00 02/05/17 18:00 02/05/17 18:00 02/05/17 18:00 Intake and Output: 02/05/17 02/06/17 18:59 06:59 Intake Total 3049 Output Total 400 Balance 2649 - Medications Medications: Current Medications Ampicillin Sodium/Sulbactam (Sodium 3 gm/ Sodium Chloride) 100 mls @ 100 mls/ hr IVPB Q6 [facility] Last Admin: 02/05/17 16:59 Dose: 100 mls/hr Dexamethasone 10 mg/ Sodium (Chloride) 51 mls @ 102 mls/hr IVPB Q8@0400,1200, 2000 [facility] Last Admin: 02/05/17 12:13 Dose: 102 mls/hr Sodium Chloride (Sodium Chloride 0.9%) 1,000 mls @ 150 mls/hr IV .Q6H40M [facility] Stop: 02/05/17 23:38 Last Admin: 02/05/17 17:00 Dose: 150 mls/hr Morphine Sulfate (Morphine) 1 mg IVP Q4 PRN PRN Reason: Pain, moderate (4-7) Last Admin: 02/05/17 05:46 Dose: 1 mg Pantoprazole Sodium (Protonix Inj) 40 mg IVP DAILY [facility] Last Admin: 02/05/17 18:48 Dose: 40 mg - Labs Labs: 02/05/17 04:35 02/05/17 04:35 - Respiratory Exam Respiratory Exam: NORMAL BREATHING PATTERN - Cardiovascular Exam Cardiovascular Exam: REGULAR RHYTHM - GI/Abdominal Exam GI & Abdominal Exam: Normal Bowel Sounds Assessment and Plan - Assessment and Plan (Free Text) Assessment: Acute Epiglottitis improving Cont to monitor in ICU IVF O2 ABX Steroids ENT ID
[2017-02-06] MEDS: Sodium Chloride 0.9% 1,000 ML IV SCH ×3 (00:58→23:44)
[2017-02-06] MEDS: Ampicillin/Sulbactam 3 GM in Sodium Chloride 0.9% 100 ML IVPB SCH ×4 (03:22→21:12)
[2017-02-06] MEDS: Dexamethasone 10 MG in Sodium Chloride 0.9% 50 ML IVPB SCH (03:22)
[2017-02-06 05:40] LABS: BASO % 0.1 % (0.0-2.0); LYMPH # 0.8 K/uL (1.0-4.3); LYMPH % 3.7 % (20.0-40.0); MEAN CELL VOLUME 93.9 fl (80.0-94.0); MEAN CORPUSCULAR HEMOGLOBIN 31.7 pg (27.0-31.0); MEAN CORPUSCULAR HGB CONC 33.7 g/dL (33.0-37.0); MEAN PLATELET VOLUME 11.9 fl (7.2-11.7); MONO % 4.6 % (0.0-10.0); NEUT # 20.4 K/uL (1.8-7.0); NEUT % 91.6 % (50.0-75.0); PLATELET COUNT 117 K/uL (130-400); RBC 4.72 Mil/uL (4.40-5.90); RED CELL DISTRIBUTION WIDTH 12.4 % (11.5-14.5); WHITE BLOOD COUNT 22.3 K/uL (4.8-10.8)
[2017-02-06 05:51] LABS: ALB/GLOB RATIO 1.2 (1.0-2.1); ALBUMIN 3.3 g/dL (3.5-5.0); ALT/SGPT 115 U/L (21-72); AST/SGOT 85 U/L (17-59); BLOOD UREA NITROGEN 15 mg/dl (9-20); CALCIUM 8.8 mg/dL (8.4-10.2); GFR AFRICAN-AMERICAN > 60; GFR NON-AFRICAN AMERICAN > 60
[2017-02-06 07:15] LABS: BANDS 1 % (0-2); LYMPHOCYTE 3 % (20-50); MONOCYTE 5 % (0-10); NEUTROPHIL 91 % (42-75); TOTAL CELLS COUNTED 100
--- NOTE | 2017-02-06 07:17 | CP.CCUPN ---
<Tisha Chau - Last Filed: 02/06/17 11:19> CCU Subjective - Physician Review Subjective (Free Text): 02/06/17 10:30 - Patient was seen at bedside. He is doing much better his voice is improving. He states that he has minimal throat discomfort. It only hurts when he swallows. He has been able to tolerate PO with eating pudding. Denies Fever, chills, nausea, or vomiting. CCU Objective - Vital Signs / Intake & Output Vital Signs (Last 4 hours): Vital Signs Temp Pulse Resp BP Pulse Ox 02/06/17 05:56 56 L 15 122/72 95 02/06/17 04:00 98.2 F 62 15 104/80 96 Intake and Output (Last 8hrs): Intake & Output 02/05/17 02/06/17 02/06/17 22:59 06:59 14:59 Intake Total 3449 1500 Output Total 300 1100 Balance 3149 400 Intake: IV 3199 1350 Intake, Piggyback 250 150 Oral 0 Output: Urine 300 1100 Urine, Voided 300 1100 Other: # Bowel Movements 0 - Physical Exam Head: Positive for: Atraumatic, Normocephalic Pupils: Positive for: PERRL Extroacular Muscles: Positive for: EOMI Conjunctiva: Positive for: Normal Pharnyx: Positive for: Other (Pharngeal erythema, Tonsillar swelling) Nose (Internal): Positive for: Normal Inspection Neck: Positive for: Normal Range of Motion Cardiovascular: Positive for: Regular Rate and Rhythm, Normal S1, S2. Negative for: Murmurs Abdomen: Positive for: Normal Bowel Sounds. Negative for: Tenderness, Distention Lower Extremity: Positive for: Normal Inspection. Negative for: Edema Neurological: Positive for: CN II-XII Intact, Motor Func Grossly Intact, Gait Normal Skin: Positive for: Warm, Dry Psychiatric: Positive for: Alert, Oriented x 3, Normal Concentration - Medications Active Medications: Active Medications Generic Name Dose Route Start Last Admin Trade Name Freq PRN Reason Stop Dose Admin Ampicillin Sodium/Sulbactam 100 mls @ 100 mls/hr 02/04/17 22:00 02/06/17 03: 22 Sodium 3 gm/ Sodium Chloride IVPB 100 mls/hr Q6 [facility] Administration Dexamethasone 10 mg/ Sodium 51 mls @ 102 mls/hr 02/05/17 04:00 02/06/17 03:22 Chloride IVPB 102 mls/hr Q8@0400,1200,2000 [facility] Administration Morphine Sulfate 1 mg 02/04/17 20:00 02/05/17 05:46 Morphine IVP 1 mg Q4 PRN Administration Pain, moderate (4-7) Pantoprazole Sodium 40 mg 02/05/17 18:26 02/05/17 18:48 Protonix Inj IVP 40 mg DAILY [facility]IN Administration - Patient Studies Lab Studies: Lab Studies 02/06/17 02/06/17 Range/Units 04:20 04:20 WBC 22.3 H (4.8-10.8) K/uL RBC 4.72 (4.40-5.90) Mil/uL Hgb 15.0 (12.0-18.0) g/dL Hct 44.4 (35.0-51.0) % MCV 93.9 (80.0-94.0) fl MCH 31.7 H (27.0-31.0) pg MCHC 33.7 (33.0-37.0) g/dL RDW 12.4 (11.5-14.5) % Plt Count 117 L (130-400) K/uL MPV 11.9 H (7.2-11.7) fl Neut % (Auto) 91.6 H (50.0-75.0) % Lymph % (Auto) 3.7 L (20.0-40.0) % [place] % (Auto) 4.6 (0.0-10.0) % Eos % (Auto) 0.0 (0.0-4.0) % Baso % (Auto) 0.1 (0.0-2.0) % Neut # 20.4 H (1.8-7.0) K/uL Lymph # 0.8 L (1.0-4.3) K/uL [place] # 1.0 H (0.0-0.8) K/uL Eos # 0.0 (0.0-0.7) K/uL Baso # 0.0 (0.0-0.2) K/uL Sodium 140 (132-148) mmol/l Potassium 4.4 (3.6-5.0) MMOL/L Chloride 110 H (98-107) mmol/L Carbon Dioxide 23 (22-30) mmol/L Anion Gap 11 (10-20) BUN 15 (9-20) mg/dl Creatinine 0.9 (0.8-1.5) mg/dL Est GFR ( Amer) > 60 Est GFR (Non-Af Amer) > 60 Random Glucose 134 H (75-110) mg/dL Calcium 8.8 (8.4-10.2) mg/dL Total Bilirubin 0.4 (0.2-1.3) mg/dl AST 85 H D (17-59) U/L ALT 115 H D (21-72) U/L Alkaline Phosphatase 88 (38-126) U/L Total Protein 6.1 L (6.3-8.2) G/DL Albumin 3.3 L (3.5-5.0) g/dL Globulin 2.8 (2.2-3.9) gm/dL Albumin/Globulin Ratio 1.2 (1.0-2.1) Laboratory Results - last 24 hr 02/06/17 02/06/17 04:20 04:20 WBC 22.3 H RBC 4.72 Hgb 15.0 Hct 44.4 MCV 93.9 MCH 31.7 H MCHC 33.7 RDW 12.4 Plt Count 117 L MPV 11.9 H Neut % (Auto) 91.6 H Lymph % (Auto) 3.[address] [place] % (Auto) 4.6 Eos % (Auto) 0.0 Baso % (Auto) 0.1 Neut # 20.4 H Lymph # 0.[address] [place] # 1.0 H Eos # 0.0 Baso # 0.0 Sodium 140 Potassium 4.4 Chloride 110 H Carbon Dioxide 23 Anion Gap 11 BUN 15 Creatinine 0.9 Est GFR ( Amer) > 60 Est GFR (Non-Af Amer) > 60 Random Glucose 134 H Calcium 8.8 Total Bilirubin 0.4 AST 85 H D ALT 115 H D Alkaline Phosphatase 88 Total Protein 6.1 L Albumin 3.3 L Globulin 2.8 Albumin/Globulin Ratio 1.2 Review of Systems - Review of Systems All systems: reviewed and no additional remarkable complaints except Critical Care Progress Note - Nutrition Nutrition: Nutrition Category Date Time Status NPO Diet [DIET] Diets 02/04/17 Dinner Active Assessment/Plan - Assessment and Plan (Free Text) Assessment: 1) Epiglottis - Dexamethasone 6mg Q8 - Thickened liquid diet, advance as tolerated. Pt advanced to stop if he coughs - Keep head of bed elevated - Heliox administration - IVF - Afebrile - CT: Bilateral tonsillitis without evidence of abscess. Extension of this process to the epiglottis with betty epiglottitis. No retropharyngeal abscess identified. There is mild narrowing of the airway at the level of the epiglottis. Probable pooled secretions in the left piriform sinus. Cannot rule out abscess. - ENT consult appreciated -Pt doing much better only hurts on swallowing 2) Strep throat : - Afebrile - Culture Group A strep - WBC trending down - Band: trended down to 1 - Unasyn Q6 - F/U w/ throat culture, blood culture, MRSA screen 3) DVT prophylaxis - SCD <FanVijay Yun - Last Filed: 02/06/17 16:46> Critical Care Progress Note - Nutrition Nutrition: Nutrition Category Date Time Status Pureed [Dysphagia/Modified Consistency Diet] [DIET] Diets 02/06/17 Lunch Active Assessment/Plan - Assessment and Plan (Free Text) Plan: Attestation: Patient seen and examined at the bedside with Resident Dr. Susana Chau; and I agree with his outline of plans and management as documented and discussed on AM rounds reflecting my review of all applicable clinical data, and participation in the care of the patient throughout the day in ICU; today, February 06, 2017.
[2017-02-06 07:18] LABS: PLATELET ESTIMATE SLIGHTLY DECREASED (NORMAL)
[2017-02-06] MEDS: Dexamethasone 6 MG in Sodium Chloride 0.9% 50 ML IVPB SCH ×2 (12:18→19:37)
--- NOTE | 2017-02-06 13:14 | CP.PCM.PN ---
Subjective - Date & Time of Evaluation Date of Evaluation: 02/06/17 Time of Evaluation: 13:10 - Subjective Subjective: see below Objective - Vital Signs/Intake and Output Vital Signs (last 24 hours): Temp Pulse Resp BP Pulse Ox 98.6 F 64 20 141/80 97 02/06/17 12:00 02/06/17 12:00 02/06/17 12:00 02/06/17 12:00 02/06/17 12:00 Intake and Output: 02/06/17 02/06/17 06:59 18:59 Intake Total 2050 150 Output Total 1200 700 Balance 850 -550 - Medications Medications: Current Medications Ampicillin Sodium/Sulbactam (Sodium 3 gm/ Sodium Chloride) 100 mls @ 100 mls/ hr IVPB Q6 ROBIN Last Admin: 02/06/17 09:19 Dose: 100 mls/hr Dexamethasone 6 mg/ Sodium (Chloride) 51.5 mls @ 103 mls/hr IVPB Q8 ROBIN Last Admin: 02/06/17 12:18 Dose: 103 mls/hr Morphine Sulfate (Morphine) 1 mg IVP Q4 PRN PRN Reason: Pain, moderate (4-7) Last Admin: 02/05/17 05:46 Dose: 1 mg Pantoprazole Sodium (Protonix Inj) 40 mg IVP DAILY [facility] Last Admin: 02/06/17 09:18 Dose: 40 mg - Labs Labs: 02/06/17 04:20 02/06/17 04:20 Assessment and Plan - Assessment and Plan (Free Text) Assessment: feels well. no pain. tolerating thickened liquids without cough or difficulty. no fevers wbc 22k (down from 29k on steroids) exam awake, alert, comfortable neck non-tender fiberoptic laryngoscopy shows improvement to laryngeal swelling impression acute epiglottitis improving plan continue iv unasyn decrease decadron (i ordered decadron 6mg q8h) advance diet to puree will continue to follow closely i d/w patient that as long as his wbc continues to decrease and his exam continues to improve, a reasonable discharge date would be Friday.
--- NOTE | 2017-02-06 16:46 | CP.PCM.PN ---
Subjective - Date & Time of Evaluation Date of Evaluation: 02/06/17 Time of Evaluation: 22:22 - Subjective Subjective: Improving WBC dec Objective - Vital Signs/Intake and Output Vital Signs (last 24 hours): Temp Pulse Resp BP Pulse Ox 98.4 F 58 L 15 126/92 H 94 L 02/06/17 16:00 02/06/17 16:00 02/06/17 16:00 02/06/17 16:00 02/06/17 16:00 Intake and Output: 02/06/17 02/06/17 06:59 18:59 Intake Total 2050 4050 Output Total 1200 700 Balance 850 3350 - Medications Medications: Current Medications Ampicillin Sodium/Sulbactam (Sodium 3 gm/ Sodium Chloride) 100 mls @ 100 mls/ hr IVPB Q6 ROBIN Last Admin: 02/06/17 16:17 Dose: 100 mls/hr Dexamethasone 6 mg/ Sodium (Chloride) 51.5 mls @ 103 mls/hr IVPB Q8 ROBIN Last Admin: 02/06/17 12:18 Dose: 103 mls/hr Sodium Chloride (Sodium Chloride 0.9%) 1,000 mls @ 200 mls/hr IV .Q5H [facility] Stop: 02/07/17 16:31 Last Admin: 02/06/17 16:28 Dose: 200 mls/hr Morphine Sulfate (Morphine) 1 mg IVP Q4 PRN PRN Reason: Pain, moderate (4-7) Last Admin: 02/05/17 05:46 Dose: 1 mg Pantoprazole Sodium (Protonix Inj) 40 mg IVP DAILY [facility] Last Admin: 02/06/17 09:18 Dose: 40 mg - Labs Labs: 02/06/17 04:20 02/06/17 04:20 - Respiratory Exam Respiratory Exam: NORMAL BREATHING PATTERN - Cardiovascular Exam Cardiovascular Exam: REGULAR RHYTHM - GI/Abdominal Exam GI & Abdominal Exam: Normal Bowel Sounds Assessment and Plan - Assessment and Plan (Free Text) Assessment: Acute Epiglottitis improving Cont to monitor in ICU IVF O2 ABX Steroids ENT ID
[2017-02-07] MEDS: Ampicillin/Sulbactam 3 GM in Sodium Chloride 0.9% 100 ML IVPB SCH ×4 (03:03→21:01)
[2017-02-07] MEDS ORDERED: Dexamethasone 6 MG in Sodium Chloride 0.9% 50 ML IVPB SCH (04:00)
[2017-02-07 05:36] LABS: HEMOGLOBIN 14.7 g/dL (12.0-18.0); MEAN CELL VOLUME 93.9 fl (80.0-94.0); MEAN CORPUSCULAR HEMOGLOBIN 31.8 pg (27.0-31.0); MEAN CORPUSCULAR HGB CONC 33.8 g/dL (33.0-37.0); RBC 4.63 Mil/uL (4.40-5.90); RED CELL DISTRIBUTION WIDTH 12.2 % (11.5-14.5); WHITE BLOOD COUNT 17.8 K/uL (4.8-10.8)
[2017-02-07 05:44] LABS: BLOOD UREA NITROGEN 15 mg/dl (9-20); CALCIUM 8.6 mg/dL (8.4-10.2); GFR AFRICAN-AMERICAN > 60; GFR NON-AFRICAN AMERICAN > 60
[2017-02-07] MEDS: Sodium Chloride 0.9% 1,000 ML IV SCH ×2 (07:04→08:16)
--- NOTE | 2017-02-07 08:18 | CP.CCUPN ---
<Tisha Chau - Last Filed: 02/07/17 15:57> CCU Subjective - Physician Review Subjective (Free Text): 02/06/17 10:30 - Patient was seen at bedside. He seems to be doing well. Has been tolerating PO intake with thickened liquids/ soft diet. States his throat is feeling much better. Denies any fever, chills, difficulty breathing, nausea or vomiting. CCU Objective - Vital Signs / Intake & Output Vital Signs (Last 4 hours): Vital Signs Temp Pulse Resp BP Pulse Ox 02/07/17 08:00 97.6 F 50 L 15 125/72 96 02/07/17 06:00 56 L 9 L 120/69 99 Intake and Output (Last 8hrs): Intake & Output 02/06/17 02/07/17 02/07/17 22:59 06:59 14:59 Intake Total 5050 2750 400 Output Total 500 1600 400 Balance 4550 1150 0 Intake: IV 4400 1800 400 Intake, Piggyback 250 150 Oral 400 800 Output: Urine 500 1600 400 Urine, Voided 500 1600 400 Other: # Voids Urine, Voided 1 1 # Bowel Movements 1 - Physical Exam Head: Positive for: Atraumatic, Normocephalic Pupils: Positive for: PERRL Extroacular Muscles: Positive for: EOMI Conjunctiva: Positive for: Normal Pharnyx: Positive for: Other (Pharngeal erythema and swelling resolving) Nose (Internal): Positive for: Normal Inspection Neck: Positive for: Normal Range of Motion Cardiovascular: Positive for: Regular Rate and Rhythm, Normal S1, S2. Negative for: Murmurs Abdomen: Positive for: Normal Bowel Sounds. Negative for: Tenderness, Distention Lower Extremity: Positive for: Normal Inspection. Negative for: Edema Neurological: Positive for: CN II-XII Intact, Motor Func Grossly Intact, Gait Normal Skin: Positive for: Warm, Dry Psychiatric: Positive for: Alert, Oriented x 3, Normal Concentration - Medications Active Medications: Active Medications Generic Name Dose Route Start Last Admin Trade Name Freq PRN Reason Stop Dose Admin Ampicillin Sodium/Sulbactam 100 mls @ 100 mls/hr 02/04/17 22:00 02/07/17 03: 03 Sodium 3 gm/ Sodium Chloride IVPB 100 mls/hr Q6 ROBIN Administration Sodium Chloride 1,000 mls @ 200 mls/hr 02/06/17 16:30 02/07/17 08:16 Sodium Chloride 0.9% IV 02/07/17 16:31 Not Given .Q5H ROBIN Dexamethasone 4 mg/ Sodium 51 mls @ 102 mls/hr 02/07/17 12:00 Chloride IVPB Q12 ROBIN Morphine Sulfate 1 mg 02/04/17 20:00 02/05/17 05:46 Morphine IVP 1 mg Q4 PRN Administration Pain, moderate (4-7) Pantoprazole Sodium 40 mg 02/05/17 18:26 02/06/17 09:18 Protonix Inj IVP 40 mg DAILY ROBIN Administration - Patient Studies Lab Studies: Lab Studies 02/07/17 02/07/17 Range/Units 04:50 04:50 WBC 17.8 H (4.8-10.8) K/uL RBC 4.63 (4.40-5.90) Mil/uL Hgb 14.7 (12.0-18.0) g/dL Hct 43.5 (35.0-51.0) % MCV 93.9 (80.0-94.0) fl MCH 31.8 H (27.0-31.0) pg MCHC 33.8 (33.0-37.0) g/dL RDW 12.2 (11.5-14.5) % Plt Count 115 L (130-400) K/uL Sodium 139 (132-148) mmol/l Potassium 4.4 (3.6-5.0) MMOL/L Chloride 109 H (98-107) mmol/L Carbon Dioxide 25 (22-30) mmol/L Anion Gap 9 L (10-20) BUN 15 (9-20) mg/dl Creatinine 0.9 (0.8-1.5) mg/dL Est GFR ( Amer) > 60 Est GFR (Non-Af Amer) > 60 Random Glucose 130 H (75-110) mg/dL Calcium 8.6 (8.4-10.2) mg/dL Laboratory Results - last 24 hr 02/07/17 02/07/17 04:50 04:50 WBC 17.8 H RBC 4.63 Hgb 14.7 Hct 43.5 MCV 93.9 MCH 31.8 H MCHC 33.8 RDW 12.2 Plt Count 115 L Sodium 139 Potassium 4.4 Chloride 109 H Carbon Dioxide 25 Anion Gap 9 L BUN 15 Creatinine 0.9 Est GFR ( Amer) > 60 Est GFR (Non-Af Amer) > 60 Random Glucose 130 H Calcium 8.6 Review of Systems - Review of Systems All systems: reviewed and no additional remarkable complaints except Critical Care Progress Note - Nutrition Nutrition: Nutrition Category Date Time Status Pureed [Dysphagia/Modified Consistency Diet] [DIET] Diets 02/06/17 Lunch Active Assessment/Plan - Assessment and Plan (Free Text) Assessment: 1) Epiglottis - Dexamethasone 6mg Q8 - Thickened liquid diet, advance as tolerated. Pt advanced to stop if he coughs - Keep head of bed elevated - Heliox administration - IVF - Afebrile - CT: Bilateral tonsillitis without evidence of abscess. Extension of this process to the epiglottis with betty epiglottitis. No retropharyngeal abscess identified. There is mild narrowing of the airway at the level of the epiglottis. Probable pooled secretions in the left piriform sinus. Cannot rule out abscess. - ENT consult appreciated -Pt doing much better only hurts on swallowing 2) Strep throat : - Afebrile - Culture Group A strep - Blood culture no growth - WBC trending down - Unasyn Q6 3) DVT prophylaxis - SCD <Vijay Chavira - Last Filed: 02/07/17 17:04> Critical Care Progress Note - Nutrition Nutrition: Nutrition Category Date Time Status Pureed [Dysphagia/Modified Consistency Diet] [DIET] Diets 02/06/17 Lunch Active Assessment/Plan - Assessment and Plan (Free Text) Plan: Attestation: Patient seen and examined at the bedside with Resident Dr. Susana Chau; and I agree with his outline of plans and management as documented and discussed on AM rounds reflecting my review of all applicable clinical data, and participation in the care of the patient throughout the day in ICU; today, February 07, 2017.
[2017-02-07] MEDS: Dexamethasone 4 MG in Sodium Chloride 0.9% 50 ML IVPB SCH ×2 (11:59→22:08)
[2017-02-07] MEDS ORDERED: Sodium Chloride 0.9% 1,000 ML IV SCH (12:53)
--- NOTE | 2017-02-07 13:06 | CP.PCM.PN ---
Subjective - Date & Time of Evaluation Date of Evaluation: 02/07/17 Time of Evaluation: 22:22 - Subjective Subjective: Improving WBC 17K Objective - Vital Signs/Intake and Output Vital Signs (last 24 hours): Temp Pulse Resp BP Pulse Ox 98.5 F 52 L 16 126/56 L 97 02/07/17 12:00 02/07/17 12:00 02/07/17 12:00 02/07/17 12:00 02/07/17 12:00 Intake and Output: 02/07/17 02/07/17 06:59 18:59 Intake Total 3900 940 Output Total 2100 400 Balance 1800 540 - Medications Medications: Current Medications Ampicillin Sodium/Sulbactam (Sodium 3 gm/ Sodium Chloride) 100 mls @ 100 mls/ hr IVPB Q6 ROBIN Last Admin: 02/07/17 09:48 Dose: 100 mls/hr Dexamethasone 4 mg/ Sodium (Chloride) 51 mls @ 102 mls/hr IVPB Q12 ROBIN Last Admin: 02/07/17 11:59 Dose: 102 mls/hr Sodium Chloride (Sodium Chloride 0.9%) 1,000 mls @ 100 mls/hr IV .Q10H [facility]IN Stop: 02/07/17 16:31 Morphine Sulfate (Morphine) 1 mg IVP Q4 PRN PRN Reason: Pain, moderate (4-7) Last Admin: 02/05/17 05:46 Dose: 1 mg Pantoprazole Sodium (Protonix Inj) 40 mg IVP DAILY [facility] Last Admin: 02/07/17 11:59 Dose: 40 mg - Labs Labs: 02/07/17 04:50 02/07/17 04:50 - Respiratory Exam Respiratory Exam: NORMAL BREATHING PATTERN - Cardiovascular Exam Cardiovascular Exam: REGULAR RHYTHM - GI/Abdominal Exam GI & Abdominal Exam: Normal Bowel Sounds Assessment and Plan - Assessment and Plan (Free Text) Assessment: Acute Epiglottitis improving Cont to monitor in ICU IVF O2 ABX Steroids ENT ID
--- NOTE | 2017-02-07 13:41 | CP.PCM.PN ---
Subjective - Date & Time of Evaluation Date of Evaluation: 02/07/17 Time of Evaluation: 08:00 - Subjective Subjective: SLOW PROGRESS AFEBRILE C/O HOARSENESS ABLE TO TOLERATE LIQUIDS BEDRIDDEN BUT IN GOOD SPIRITS Objective - Vital Signs/Intake and Output Vital Signs (last 24 hours): Temp Pulse Resp BP Pulse Ox 98.5 F 52 L 16 126/56 L 97 02/07/17 12:00 02/07/17 12:00 02/07/17 12:00 02/07/17 12:00 02/07/17 12:00 Intake and Output: 02/07/17 02/07/17 06:59 18:59 Intake Total 3900 940 Output Total 2100 400 Balance 1800 540 - Medications Medications: Current Medications Ampicillin Sodium/Sulbactam (Sodium 3 gm/ Sodium Chloride) 100 mls @ 100 mls/ hr IVPB Q6 ROBIN Last Admin: 02/07/17 09:48 Dose: 100 mls/hr Dexamethasone 4 mg/ Sodium (Chloride) 51 mls @ 102 mls/hr IVPB Q12 ROBIN Last Admin: 02/07/17 11:59 Dose: 102 mls/hr Sodium Chloride (Sodium Chloride 0.9%) 1,000 mls @ 100 mls/hr IV .Q10H [facility]IN Stop: 02/07/17 16:31 Morphine Sulfate (Morphine) 1 mg IVP Q4 PRN PRN Reason: Pain, moderate (4-7) Last Admin: 02/05/17 05:46 Dose: 1 mg Pantoprazole Sodium (Protonix Inj) 40 mg IVP DAILY [facility]IN Last Admin: 02/07/17 11:59 Dose: 40 mg - Labs Labs: 02/07/17 04:50 02/07/17 04:50 - Constitutional Appears: Non-toxic - Head Exam Head Exam: NORMOCEPHALIC - Eye Exam Eye Exam: absent: Scleral icterus - ENT Exam ENT Exam: Mucous Membranes Dry. absent: Normal Oropharynx - Neck Exam Neck Exam: absent: Lymphadenopathy, Thyromegaly - Respiratory Exam Respiratory Exam: Decreased Breath Sounds - Cardiovascular Exam Cardiovascular Exam: REGULAR RHYTHM, +S1, +S2 - GI/Abdominal Exam GI & Abdominal Exam: Distended, Soft. absent: Tenderness - Rectal Exam Rectal Exam: Deferred - Extremities Exam Extremities Exam: absent: Calf Tenderness, Pedal Edema - Back Exam Back Exam: absent: CVA tenderness (L), CVA tenderness (R), paraspinal tenderness - Neurological Exam Neurological Exam: Alert, Awake, Oriented x3 - Psychiatric Exam Psychiatric exam: Normal Mood - Skin Skin Exam: Dry Assessment and Plan (1) Epiglottitis Status: Acute (2) Tonsillitis Status: Acute - Assessment and Plan (Free Text) Plan: CONT IV THEN PO RX FOR GRP A STREP
[2017-02-07 21:10] LABS: HEPATITIS B SURFACE AG NEGATIVE (NEGATIVE)
[2017-02-07 21:15] LABS: HEPATITIS A IGM NEGATIVE (NEGATIVE)
[2017-02-07 21:28] LABS: HEPATITIS C ANTIBODY NEGATIVE (NEGATIVE)
[2017-02-07 21:30] LABS: HEPATITIS B CORE AB NEGATIVE (NEGATIVE)
[2017-02-08] MEDS: Ampicillin/Sulbactam 3 GM in Sodium Chloride 0.9% 100 ML IVPB SCH ×4 (04:00→21:35)
[2017-02-08] MEDS: Sodium Chloride 0.9% 1,000 ML IV SCH ×3 (04:20→17:01)
[2017-02-08 07:04] LABS: HEMOGLOBIN 15.5 g/dL (12.0-18.0); MEAN CELL VOLUME 93.6 fl (80.0-94.0); MEAN CORPUSCULAR HEMOGLOBIN 31.3 pg (27.0-31.0); MEAN CORPUSCULAR HGB CONC 33.4 g/dL (33.0-37.0); RBC 4.97 Mil/uL (4.40-5.90); RED CELL DISTRIBUTION WIDTH 12.4 % (11.5-14.5); WHITE BLOOD COUNT 15.3 K/uL (4.8-10.8)
[2017-02-08 07:23] LABS: ALB/GLOB RATIO 1.2 (1.0-2.1); ALBUMIN 3.1 g/dL (3.5-5.0); ALT/SGPT 96 U/L (21-72); AST/SGOT 40 U/L (17-59); BLOOD UREA NITROGEN 13 mg/dl (9-20); CALCIUM 8.7 mg/dL (8.4-10.2); GFR AFRICAN-AMERICAN > 60; GFR NON-AFRICAN AMERICAN > 60
--- NOTE | 2017-02-08 11:18 | CP.CCUPN ---
CCU Subjective - Physician Review Events Since Last Encounter (Free Text): 02/08/17 11:16 Feeling better, no fever, was evaluated by ENT this am, epiglottis swelling much better, speaking clear now, no complaint, no distress. CCU Objective - Vital Signs / Intake & Output Vital Signs (Last 4 hours): Vital Signs Temp Pulse Resp BP Pulse Ox 02/08/17 10:00 55 L 16 148/58 L 98 02/08/17 08:29 97.9 F 51 L 19 93/32 L 96 02/08/17 07:34 57 L Intake and Output (Last 8hrs): Intake & Output 02/07/17 02/08/17 02/08/17 22:59 06:59 14:59 Intake Total 2325 990 700 Output Total 3180 1450 1500 Balance -855 460 -800 Intake: IV 500 700 400 Intake, Piggyback 200 50 100 Oral 1625 240 200 Output: Urine 3180 1450 1500 Urine, Voided 3180 1450 1500 Other: # Bowel Movements 2 1 - Physical Exam Narrative Physical Exam (Free Text): 02/08/17 11:17 P/E Neck: No JVD Lungs: no ronchi or crackels heart: no gallop Abdomen: no tenderness Ext; No edema neuro: no focal signs Head: Positive for: Atraumatic, Normocephalic Pupils: Positive for: PERRL Extroacular Muscles: Positive for: EOMI Conjunctiva: Positive for: Normal Pharnyx: Positive for: Other (Pharngeal erythema and swelling resolving) Nose (Internal): Positive for: Normal Inspection Neck: Positive for: Normal Range of Motion Cardiovascular: Positive for: Regular Rate and Rhythm, Normal S1, S2. Negative for: Murmurs Abdomen: Positive for: Normal Bowel Sounds. Negative for: Tenderness, Distention Lower Extremity: Positive for: Normal Inspection. Negative for: Edema Neurological: Positive for: CN II-XII Intact, Motor Func Grossly Intact, Gait Normal Skin: Positive for: Warm, Dry Psychiatric: Positive for: Alert, Oriented x 3, Normal Concentration - Medications Active Medications: Active Medications Generic Name Dose Route Start Last Admin Trade Name Freq PRN Reason Stop Dose Admin Ampicillin Sodium/Sulbactam 100 mls @ 100 mls/hr 02/04/17 22:00 02/08/17 09: 45 Sodium 3 gm/ Sodium Chloride IVPB 100 mls/hr Q6 ROBIN Administration Sodium Chloride 1,000 mls @ 100 mls/hr 02/07/17 22:00 02/08/17 08:38 Sodium Chloride 0.9% IV 02/08/17 21:57 100 mls/hr .Q10H ROBIN Administration Dexamethasone 2 mg/ Sodium 50.5 mls @ 101 mls/hr 02/08/17 11:15 Chloride IVPB Q12 ROBIN Morphine Sulfate 1 mg 02/04/17 20:00 02/05/17 05:46 Morphine IVP 1 mg Q4 PRN Administration Pain, moderate (4-7) Pantoprazole Sodium 40 mg 02/05/17 18:26 02/08/17 08:38 Protonix Inj IVP 40 mg DAILY ROBIN Administration - Patient Studies Lab Studies: Lab Studies 02/08/17 02/08/17 02/07/17 Range/Units 06:56 06:56 14:42 WBC 15.3 H (4.8-10.8) K/uL RBC 4.97 (4.40-5.90) Mil/uL Hgb 15.5 (12.0-18.0) g/dL Hct 46.5 (35.0-51.0) % MCV 93.6 (80.0-94.0) fl MCH 31.3 H (27.0-31.0) pg MCHC 33.4 (33.0-37.0) g/dL RDW 12.4 (11.5-14.5) % Plt Count 120 L (130-400) K/uL Sodium 139 (132-148) mmol/l Potassium 4.5 (3.6-5.0) MMOL/L Chloride 107 (98-107) mmol/L Carbon Dioxide 28 (22-30) mmol/L Anion Gap 9 L (10-20) BUN 13 (9-20) mg/dl Creatinine 1.0 (0.8-1.5) mg/dL Est GFR ( Amer) > 60 Est GFR (Non-Af Amer) > 60 Random Glucose 106 (75-110) mg/dL Calcium 8.7 (8.4-10.2) mg/dL Total Bilirubin 0.5 (0.2-1.3) mg/dl AST 40 (17-59) U/L ALT 96 H (21-72) U/L Alkaline Phosphatase 73 (38-126) U/L Total Protein 5.7 L (6.3-8.2) G/DL Albumin 3.1 L (3.5-5.0) g/dL Globulin 2.6 (2.2-3.9) gm/dL Albumin/Globulin Ratio 1.2 (1.0-2.1) Hepatitis A IgM Ab (NEGATIVE) Hep Bs Antigen (NEGATIVE) Hep B Core IgM Ab (NEGATIVE) Hepatitis C Antibody (NEGATIVE) HIV 1&2 Antibody Screen Negative (NEGATIVE) 02/07/17 Range/Units 14:42 WBC (4.8-10.8) K/uL RBC (4.40-5.90) Mil/uL Hgb (12.0-18.0) g/dL Hct (35.0-51.0) % MCV (80.0-94.0) fl MCH (27.0-31.0) pg MCHC (33.0-37.0) g/dL RDW (11.5-14.5) % Plt Count (130-400) K/uL Sodium (132-148) mmol/l Potassium (3.6-5.0) MMOL/L Chloride (98-107) mmol/L Carbon Dioxide (22-30) mmol/L Anion Gap (10-20) BUN (9-20) mg/dl Creatinine (0.8-1.5) mg/dL Est GFR ( Amer) Est GFR (Non-Af Amer) Random Glucose (75-110) mg/dL Calcium (8.4-10.2) mg/dL Total Bilirubin (0.2-1.3) mg/dl AST (17-59) U/L ALT (21-72) U/L Alkaline Phosphatase (38-126) U/L Total Protein (6.3-8.2) G/DL Albumin (3.5-5.0) g/dL Globulin (2.2-3.9) gm/dL Albumin/Globulin Ratio (1.0-2.1) Hepatitis A IgM Ab Negative (NEGATIVE) Hep Bs Antigen Negative (NEGATIVE) Hep B Core IgM Ab Negative (NEGATIVE) Hepatitis C Antibody Negative (NEGATIVE) HIV 1&2 Antibody Screen (NEGATIVE) Laboratory Results - last 24 hr 02/07/17 02/07/17 02/08/17 14:42 14:42 06:56 WBC 15.3 H RBC 4.97 Hgb 15.5 Hct 46.5 MCV 93.6 MCH 31.3 H MCHC 33.4 RDW 12.4 Plt Count 120 L Sodium Potassium Chloride Carbon Dioxide Anion Gap BUN Creatinine Est GFR ( Amer) Est GFR (Non-Af Amer) Random Glucose Calcium Total Bilirubin AST ALT Alkaline Phosphatase Total Protein Albumin Globulin Albumin/Globulin Ratio Hepatitis A IgM Ab Negative Hep Bs Antigen Negative Hep B Core IgM Ab Negative Hepatitis C Antibody Negative HIV 1&2 Antibody Screen Negative 02/08/17 06:56 WBC RBC Hgb Hct MCV MCH MCHC RDW Plt Count Sodium 139 Potassium 4.5 Chloride 107 Carbon Dioxide 28 Anion Gap 9 L BUN 13 Creatinine 1.0 Est GFR ( Amer) > 60 Est GFR (Non-Af Amer) > 60 Random Glucose 106 Calcium 8.7 Total Bilirubin 0.5 AST 40 ALT 96 H Alkaline Phosphatase 73 Total Protein 5.7 L Albumin 3.1 L Globulin 2.6 Albumin/Globulin Ratio 1.2 Hepatitis A IgM Ab Hep Bs Antigen Hep B Core IgM Ab Hepatitis C Antibody HIV 1&2 Antibody Screen Critical Care Progress Note - Nutrition Nutrition: Nutrition Category Date Time Status Pureed [Dysphagia/Modified Consistency Diet] [DIET] Diets 02/06/17 Lunch Active Assessment/Plan - Assessment and Plan (Free Text) Assessment: Acute epiglotitis Acute tonsilitis Plan: Seen by ENT this am Clear for transfer to floor, will go home tomorrow Tapering decadron Regular food Dc IVF Transfer to med-surg.
[2017-02-08] MEDS: Dexamethasone 2 MG in Sodium Chloride 0.9% 50 ML IVPB SCH ×2 (12:12→21:02)
[2017-02-08 19:50] VITALS: RESP 18
--- NOTE | 2017-02-08 23:12 | CP.PCM.PN ---
Subjective - Date & Time of Evaluation Date of Evaluation: 02/08/17 Time of Evaluation: 10:00 - Subjective Subjective: see below Objective - Vital Signs/Intake and Output Vital Signs (last 24 hours): Temp Pulse Resp BP Pulse Ox 97.7 F 76 18 151/97 H 99 02/08/17 19:49 02/08/17 20:21 02/08/17 19:49 02/08/17 19:49 02/08/17 19:49 Intake and Output: 02/08/17 02/09/17 18:59 06:59 Intake Total 1750 Output Total 2100 Balance -350 - Medications Medications: Current Medications Ampicillin Sodium/Sulbactam (Sodium 3 gm/ Sodium Chloride) 100 mls @ 100 mls/ hr IVPB Q6 ROBIN Last Admin: 02/08/17 21:35 Dose: 100 mls/hr Dexamethasone 2 mg/ Sodium (Chloride) 50.5 mls @ 101 mls/hr IVPB Q12 ROBIN Last Admin: 02/08/17 21:02 Dose: 101 mls/hr Morphine Sulfate (Morphine) 1 mg IVP Q4 PRN PRN Reason: Pain, moderate (4-7) Last Admin: 02/05/17 05:46 Dose: 1 mg Pantoprazole Sodium (Protonix Inj) 40 mg IVP DAILY [facility] Last Admin: 02/08/17 08:38 Dose: 40 mg - Labs Labs: 02/08/17 06:56 02/08/17 06:56 Assessment and Plan - Assessment and Plan (Free Text) Assessment: feels much better no pain tolerating oral intake without problem exam breathing comfortably. voice strong. neck soft, non-tender, no swelling Procedure Note: fiberoptic laryngoscopy 59520. Indication: voice changes, laryngeal edema Nose anesthetized with Lidocaine 4% spray. Flexible fiberoptic scope then passed into the nose and passed down to the hypopharynx/larynx. Significant improvement to epiglottis edema (nearly resolved). arytenoid and AE fold edema resolved. B/L true vocal cords symmetric and mobile. No masses or lesions. Airway widely patent. Scope removed. No complications. Patient tolerated procedure well. Impression Acute Epiglottitis, overall significantly improved i will continue to taper decadron (he is on 2mg q12h) i am ok with patient going home tomorrow on Augmentin 875 BID for another 10 days and 2 more days of Prednisone (20,10). I will call these medications in to his pharmacy. i also asked him to f/u with me in 2 weeks
[2017-02-09] MEDS: Ampicillin/Sulbactam 3 GM in Sodium Chloride 0.9% 100 ML IVPB SCH ×2 (03:38→09:49)
[2017-02-09] MEDS: Dexamethasone 2 MG in Sodium Chloride 0.9% 50 ML IVPB SCH (09:50)
[2017-02-09 12:19] VITALS: BP 139/88; PULSE 70; TEMP 98; O2SAT 98
--- NOTE | 2017-02-09 13:57 | CP.PCM.PN ---
Subjective - Date & Time of Evaluation Date of Evaluation: 02/09/17 Time of Evaluation: 09:00 - Subjective Subjective: improving less pain and swelling no fever Objective - Vital Signs/Intake and Output Vital Signs (last 24 hours): Temp Pulse Resp BP Pulse Ox 98.0 F 70 18 139/88 98 02/09/17 12:00 02/09/17 12:00 02/09/17 12:00 02/09/17 12:00 02/09/17 12:00 - Medications Medications: Current Medications Ampicillin Sodium/Sulbactam (Sodium 3 gm/ Sodium Chloride) 100 mls @ 100 mls/ hr IVPB Q6 ROBIN Last Admin: 02/09/17 09:49 Dose: 100 mls/hr Dexamethasone 2 mg/ Sodium (Chloride) 50.5 mls @ 101 mls/hr IVPB Q12 ROBIN Last Admin: 02/09/17 09:50 Dose: 101 mls/hr Morphine Sulfate (Morphine) 1 mg IVP Q4 PRN PRN Reason: Pain, moderate (4-7) Last Admin: 02/05/17 05:46 Dose: 1 mg Pantoprazole Sodium (Protonix Inj) 40 mg IVP DAILY [facility] Last Admin: 02/09/17 09:51 Dose: 40 mg - Labs Labs: 02/08/17 06:56 02/08/17 06:56 - Constitutional Appears: Non-toxic, Chronically Ill - Head Exam Head Exam: NORMOCEPHALIC - Eye Exam Eye Exam: PERRL. absent: Scleral icterus - ENT Exam ENT Exam: Mucous Membranes Dry, Normal External Ear Exam - Neck Exam Neck Exam: absent: Lymphadenopathy - Respiratory Exam Respiratory Exam: Decreased Breath Sounds, Clear to Ausculation Bilateral - Cardiovascular Exam Cardiovascular Exam: REGULAR RHYTHM, +S1, +S2 - GI/Abdominal Exam GI & Abdominal Exam: Distended, Soft. absent: Tenderness - Rectal Exam Rectal Exam: Deferred - Exam Exam: NORMAL INSPECTION - Extremities Exam Extremities Exam: absent: Pedal Edema - Back Exam Back Exam: absent: CVA tenderness (L), CVA tenderness (R) - Neurological Exam Neurological Exam: Alert, Awake Assessment and Plan (1) Epiglottitis Status: Acute (2) Tonsillitis Status: Acute - Assessment and Plan (Free Text) Plan: cont antibiotics as out pt
--- NOTE | 2017-02-09 22:47 | CP.PCM.PN ---
Subjective - Date & Time of Evaluation Date of Evaluation: 02/09/17 Time of Evaluation: 22:22 - Subjective Subjective: Above noted Objective - Vital Signs/Intake and Output Vital Signs (last 24 hours): Temp Pulse Resp BP Pulse Ox 98.0 F 70 18 139/88 98 02/09/17 12:00 02/09/17 12:00 02/09/17 12:00 02/09/17 12:00 02/09/17 12:00 - Labs Labs: 02/08/17 06:56 02/08/17 06:56 - Respiratory Exam Respiratory Exam: NORMAL BREATHING PATTERN - Cardiovascular Exam Cardiovascular Exam: REGULAR RHYTHM - GI/Abdominal Exam GI & Abdominal Exam: Normal Bowel Sounds Assessment and Plan - Assessment and Plan (Free Text) Assessment: Acute Epiglottitis Group A Strept Iimproved D/C Home ABX taper Steroids F/U ENT
== END 2017-02-09 15:36 | disposition home or self-care (01) | DRG 153 ==
LOC: H.ER 09:43 → H.EROBSV 14:04 → OBSVTOIN 15:28 → H.ERHOLD 15:33 → H.ICU/CCU 17:32 → H.TEL 02-08 14:18
PROVIDERS: ADMIT Family Medicine Geriatric Medicine; ATTEND Family Medicine Geriatric Medicine
PROC: 0CJS8ZZ Inspection of Larynx, Via Natural or Artificial Opening Endoscopic (ICD-10-PCS; principal; 2017-02-04)
DX: J05.10 Acute epiglottitis without obstruction (principal); R13.10 Dysphagia, unspecified; I10 Essential (primary) hypertension; J02.0 Streptococcal pharyngitis; I25.10 Atherosclerotic heart disease of native coronary artery without angina pectoris; J03.90 Acute tonsillitis, unspecified; Z87.891 Personal history of nicotine dependence; Z90.49 Acquired absence of other specified parts of digestive tract; R11.2 Nausea with vomiting, unspecified; R49.0 Dysphonia